=== PATIENT | female | born 1940 | race Caucasian/White ===

== ENCOUNTER 2016-05-21 08:57 | Outpatient (CLI) | payer MEDICARE | END 2016-05-21 08:58 | disposition home or self-care (01) | DX: M85.89 Other specified disorders of bone density and structure, multiple sites (principal) ==

== ENCOUNTER 2016-05-21 09:03 | Outpatient (CLI) | payer MEDICARE | END 2016-05-21 09:04 | disposition home or self-care (01) | DX: Z12.31 Encounter for screening mammogram for malignant neoplasm of breast (principal) ==

== ENCOUNTER 2016-11-28 09:11 | Outpatient (CLI) | payer MEDICARE ==
--- NOTE | 2016-11-29 15:57 | Ultrasound Report ---
EXAM: PELVIC ULTRASOUND EXAM DATE: 11/28/2016 10:29 AM. CLINICAL HISTORY: Vaginal bleeding. COMPARISON: None. TECHNIQUE: Realtime transabdominal pelvic scan performed to identify the uterus and adnexa and as an overview of other pelvic structures, followed by transvaginal scan to provide greater detail of the u terus and adnexa, with static image documentation. FINDINGS: Uterus: 8.0 x 3.5 x 5.2 cm, volume 76.1 cc. Anteverted position. Normal overall size. Heterogeneous e chotexture. Masses: None. Endometrium: 7 mm. Heterogeneous solid 1.1 x 1.2 x 1.3 cm abnormality in the lower uterine segment. Cervix: Unremarkable. Right Ovary: 2.6 x 1.2 x 1.4 cm, volume 1.7 cc. Normal echotexture and blood flow. Left Ovary: 1.6 x 1.2 x 1.4 cm, volume 1.4 cc. Normal echotexture and blood flow. Free Fluid: None. Other: None. IMPRESSION: Heterogeneous myometrium, concerning for adenomyosis, with abnormal endometrium 7 mm thi ck containing a mass or polyp in the lower uterine segment. [facility] Referring Provider Line: [phone] SITE ID: [id number]
== END 2016-11-28 09:12 | disposition home or self-care (01) ==
LOC: DI 09:11
PROVIDERS: ATTEND Internal Medicine
DX: R93.8 Abnormal findings on diagnostic imaging of other specified body structures (principal)
CPT/HCPCS: 76830; 76856

== ENCOUNTER 2017-01-04 12:18 | Outpatient (CLI) | payer MEDICARE | END 2017-01-04 12:19 | disposition home or self-care (01) | LOC: RT 12:18 | PROVIDERS: ATTEND Obstetrics & Gynecology | DX: Z01.810 Encounter for preprocedural cardiovascular examination (principal); N95.0 Postmenopausal bleeding | CPT/HCPCS: 93005 ==

== ENCOUNTER 2017-01-06 07:20 | Day surgery (SDC) | payer MEDICARE ==
--- NOTE | 2017-01-05 09:32 | HISTORY & PHYSICAL EXAMINATION ---
DATE OF ADMISSION: 01/06/2017 HISTORY OF PRESENT ILLNESS: The patient is a 76-year-old female who had one episode of postmenopausal bleeding in the early part of November. She had not been bleeding since menopause in 1994. She did not t cameron Prempro until 2002, at which time she switched to vaginal Premarin cream, which she continued unt il last year. Again, this was her first episode of bleeding. Hospital ultrasound demonstrated an endo metrial thickness of 7 mm and a 1-2 cm solid lesion in the endocervical canal, possibly representing a polyp. PAST MEDICAL HISTORY: The patient has had a laparoscopic cholecystectomy in 2001, in the distant past a tonsillectomy. She had 3 vaginal deliveries. ALLERGIES 1. LAMISIL. 2. SULFA DRUGS. CURRENT MEDICATIONS Include 1. Calcium. 2. As needed Lorazepam for anxiety. FAMILY HISTORY: Mother had colon cancer. REVIEW OF SYSTEMS GASTROINTESTINAL: Again, the patient had a cholecystectomy in 2001. Approximately also at that time s he was treated with Lamisil, which prompted a marked reaction in her liver function tests, which subs equently returned to normal. PHYSICAL EXAMINATION GENERAL APPEARANCE: The patient appears younger than her stated age. HEENT: Within normal limits. NECK: No thyromegaly. LUNGS: Clear. HEART: Regular rhythm with no murmur or gallop. ABDOMEN: Unremarkable with no masses or organomegaly. EXTREMITIES: Normal. NEUROLOGICAL: Grossly intact. GENITALIA: Introitus and vagina are atrophic. Cervix is grossly normal. No polyp was seen. The uterus is felt to be normal size and no palpable adnexal masses. ASSESSMENT: Postmenopausal bleeding with an endocervical mass, possibly representing a polyp. PLAN: Hysteroscopy D and C to evaluate the thickened endometrium in addition to the mass in the endoc ervix. The procedure has been explained to the patient. She understands and agrees to proceed. JOB #: [id number] EXT JOB #:[id number]
[2017-01-06] MEDS ORDERED: LACTATED RINGERS 1,000 ML IV ONE (07:34)
[2017-01-06] MEDS ORDERED: LIDOCAINE 1% 50 ML MDV SUBQ ONE (09:10)
[2017-01-06] MEDS ORDERED: MIDAZOLAM 2 MG/2 ML VIAL IVP ONE (09:24)
[2017-01-06] MEDS ORDERED: METOCLOPRAMIDE 10 MG/2 ML VIAL IVP ONE (09:24)
[2017-01-06] MEDS ORDERED: KETOROLAC 30 MG/ML VIAL IVP ONE (09:24)
[2017-01-06] MEDS ORDERED: ePHEDrine 50 MG/ML VIAL IVP ONE (09:24)
[2017-01-06] MEDS ORDERED: PROPOFOL 200 MG/20 ML VIAL IVP ONE (09:24)
[2017-01-06] MEDS ORDERED: fentaNYL 100 MCG/2 ML VIAL IVP ONE (09:24)
[2017-01-06] MEDS ORDERED: LIDOCAINE-MPF 2% 5 ML VIAL IM ONE (09:24)
[2017-01-06] MEDS ORDERED: ONDANSETRON 4 MG/2 ML VIAL IVP ONE (09:24)
--- NOTE | 2017-01-06 10:05 | OPERATIVE REPORT ---
DATE OF SURGERY: 01/06/2017 00:00:00 PREOPERATIVE DIAGNOSES 1. Postmenopausal bleeding. 2. Cervical mass. OPERATION: Hysteroscopy D and C. POSTOPERATIVE DIAGNOSES 1. Postmenopausal bleeding. 2. Endocervical polyp. SURGEON: Elías Diamond MD. ANESTHESIA: IV conscious sedation. PROCEDURE: In the lithotomy position under conscious sedation, the patient's perineum and vagina were prepped and draped in the usual sterile fashion. The cervix was grasped with a single-toothed tenacu lum. The uterus sounded to 7 cm. It was dilated with Hegar dilators. Hysteroscope was then inserted u nder direct vision. There was a scant amount of endometrial tissue in the endometrial cavity from the upper endocervical canal. There was an endocervical polyp on a long stalk. Very little tissue was as sociated with it. Sharp curettage was undertaken and the polyp removed with stone forceps. The scope was then replaced and the cavity appeared clean. Again, there was very little tissue submitted in a s aroldo specimen. The patient tolerated the procedure well. There were no complications. There was mini mal blood loss. JOB #: [id number] EXT JOB #:[id number]
[2017-01-06 10:23] VITALS: BP 100/50
== END 2017-01-06 07:21 | disposition home or self-care (01) ==
LOC: SDS 07:20
PROVIDERS: ATTEND Obstetrics & Gynecology
PROC: 0UDB7ZZ Extraction of Endometrium, Via Natural or Artificial Opening (ICD-10-PCS; 2017-01-06)
PROC: 0UJD8ZZ Inspection of Uterus and Cervix, Via Natural or Artificial Opening Endoscopic (ICD-10-PCS; 2017-01-06)
PROC: 0UBC7ZZ Excision of Cervix, Via Natural or Artificial Opening (ICD-10-PCS; principal; 2017-01-06 09:00)
DX: N84.1 Polyp of cervix uteri (principal)
CPT/HCPCS: 58558; 88305; J7120

== ENCOUNTER 2017-05-24 09:04 | Outpatient (CLI) | payer MEDICARE ==
--- NOTE | 2017-05-26 09:43 | Mammography Report ---
DATE OF SERVICE: 05/24/2017 DIGITAL SCREENING MAMMOGRAM: 05/24/2017 CLINICAL INDICATION: A 76-year-old, for screening. COMPARISON: 05/2016, 05/2015, 03/2014, 02/2012, 01/2011, 11/2009. TECHNIQUE: Routine CC and MLO projections were obtained of the breasts. Bilateral laterally exaggerated craniocaudal views. FINDINGS: The breasts demonstrate heterogeneously dense fibroglandular parenchyma bilaterally. Coarse and punctate, typically benign calcifications are present. No suspicious masses, clustered microcalcifications, or regions of architectural distortion are identified. IMPRESSION: BENIGN FINDINGS. RECOMMENDATION: ROUTINE ANNUAL SCREENING UNLESS OTHERWISE CLINICALLY INDICATED. BIRADS CATEGORY 2-BENIGN FINDINGS. STANDARD QUALIFYING STATEMENTS: 1. This examination was reviewed with the aid of Computer-Aided Detection (CAD). 2. A negative or benign imaging report should not delay biopsy if clinically suspicious findings are present. Consider surgical consultation if warranted. More than 5% of cancers are not identified by imaging. 3. Dense breasts may obscure an underlying neoplasm. TD: 05/26/2017 10:42
== END 2017-05-24 09:05 | disposition home or self-care (01) ==
LOC: DI 09:04
PROVIDERS: ATTEND Internal Medicine
DX: Z12.31 Encounter for screening mammogram for malignant neoplasm of breast (principal)
CPT/HCPCS: 77067

== ENCOUNTER 2018-04-04 08:04 | Outpatient (CLI) | payer MEDICARE | END 2018-04-04 08:05 | disposition critical access hospital (66) | LOC: EMS 08:04 | PROVIDERS: ATTEND Surgery | DX: M25.551 Pain in right hip (principal); W00.0XXA Fall on same level due to ice and snow, initial encounter; Y93.01 Activity, walking, marching and hiking ==

== ENCOUNTER 2018-04-04 08:12 | Observation (INO) | payer MEDICARE ==
--- NOTE | 2018-04-04 08:26 | ED Physician Documentation ---
PD HPI LOWER EXT INJURY - Stated complaint Stated Complaint: GLF - Chief complaint Chief Complaint: Ext Problem - History obtained from History obtained from: Patient - History of Present Illness PD HPI LOW EXT INJURY LOCATION: Right, Hip Type of injury: Fall Where injury occurred: Home Timing - onset: How many hours ago (30), Today Timing - duration: Minutes (30) Timing - details: Abrupt onset, Still present Associated symptoms: No: Weakness, Numbness, Swelling Review of Systems Constitutional: denies: Fever, Chills Nose: denies: Rhinorrhea / runny nose, Congestion Throat: denies: Sore throat Respiratory: denies: Cough GI: denies: Abdominal Pain, Nausea, Vomiting Skin: denies: Abrasion (s), Laceration (s) Musculoskeletal: denies: Neck pain, Back pain Neurologic: denies: Altered mental status, Headache, Head injury PD PAST MEDICAL HISTORY - Past Medical History Past Medical History: No Cardiovascular: None Respiratory: None Endocrine/Autoimmune: None - Past Surgical History Past Surgical History: Yes General: Cholecystectomy - Present Medications Home Medications: Ambulatory Orders Medication Instructions Recorded Confirmed Calcium Carbonate [Calcium] 600 mg PO DAILY 01/04/17 04/04/18 LORazepam [Lorazepam] 0.5 mg PO ONCE 01/06/17 04/04/18 - Allergies Allergies/Adverse Reactions: Allergies Allergy/AdvReac Type Severity Reaction Status Date / Time Sulfa (Sulfonamide Allergy Respiratory Verified 01/04/17 12:20 Antibiotics) terbinafine HCl * Allergy Unknown Verified 01/04/17 12:20 [From Lamisil] - Social History Does the pt smoke?: No Smoking Status: Never smoker Does the pt drink ETOH?: No Does the pt have substance abuse?: No - Immunizations Immunizations are current?: Yes PD ED PE NORMAL - Vitals Vital signs reviewed: Yes - General General: Alert and oriented X 3, No acute distress, Well developed/nourished - HEENT HEENT: Atraumatic - Neck Neck: Supple, no meningeal sign, No adenopathy - Cardiac Cardiac: RRR, No murmur - Respiratory Respiratory: Clear bilaterally, Other (no chetwall tenderness) - Abdomen Abdomen: Soft, Non tender - Back Back: No CVA TTP, No spinal TTP - Derm Derm: Normal color, Warm and dry - Extremities Extremities: No: Normal ROM s pain (left hip and leg are okay. Right knee and ankle without tenderness. Right hip with pain on any ROM and marked pain with even slight passive impaction or rotational movement. ) - Neuro Neuro: Alert and oriented X 3, No motor deficit, No sensory deficit, Normal speech Eye Opening: Spontaneous Motor: Obeys Commands Verbal: Oriented GCS Score: 15 Results - Vitals Vitals: Vital Signs - 24 hr 04/04/18 04/04/18 04/04/18 08:16 09:35 10:50 Temperature 36.9 C Heart Rate 90 72 68 Respiratory 16 18 20 Rate Blood Pressure 151/81 H 149/80 H 166/87 H O2 Saturation 100 100 97 04/04/18 11:09 Temperature Heart Rate 75 Respiratory Rate Blood Pressure O2 Saturation 100 Oxygen O2 Source Room air - Labs Labs: Laboratory Tests 04/04/18 04/04/18 10:10 10:10 WBC 12.7 H RBC 4.29 Hgb 12.6 Hct 36.9 L MCV 86.0 MCH 29.3 MCHC 34.1 RDW 13.1 Plt Count 183 MPV 9.1 Neut # (Auto) 10.6 H Lymph # (Auto) 1.3 L Bond # (Auto) 0.7 Eos # (Auto) 0.1 Baso # (Auto) 0.1 Absolute Nucleated RBC 0.00 Nucleated RBC % 0.0 Sodium 139 Potassium 4.0 Chloride 113 H Carbon Dioxide 19 L Anion Gap 7.0 BUN 22 H Creatinine 1.0 Estimated GFR (MDRD) 54 L Glucose 97 Calcium 8.8 Total Bilirubin 1.0 AST 22 ALT 21 Alkaline Phosphatase 68 Total Protein 6.3 L Albumin 4.0 Globulin 2.3 Albumin/Globulin Ratio 1.7 Lipase 31 - Rads (name of study) hip right Radiology: Prelim report reviewed, EMP read contemporaneously (inf/sup rami fractures) pelvic angio Radiology: Prelim report reviewed (Pelvic angios done at the direction and suggestion of the radiologist for evaluation of bleeding from the fractures. There was a small hematoma associated with the ramus fracture about 4 cm. No extravasation of dye to suggest ongoing bleeding. The CT scan did identify a sacral ala fracture as well. There is no displacement of the large pelvic ring.), Discussed with rads PD MEDICAL DECISION MAKING - ED course Complexity details: re-evaluated patient (She is feeling reasonably comfortable with lying on the bed with some pain medicine. However trying to sit up or swing her legs over and even slight impaction pressure as I push on her knee causes significant pain. She is not able to walk at this time due to the pain of it.), considered differential, d/w patient, d/w taxation consultant (I talked with the [place] transfer coordinating physician. I reviewed the findings with him. He did not feel there was necessity to transfer for orthopedic regarding the pelvic fractures. He said we would be able to treat the pain control with the patient in our hospital and get consultations for physical therapy and such.) Departure - Departure Disposition: ED Place in Observation Clinical Impression: Inability to walk, Acute pelvic pain Fall from slip, trip, or stumble Qualifiers: Encounter type: initial encounter Qualified Code(s): W01.0XXA - Fall on same level from slipping, tripping and stumbling without subsequent striking against object, initial encounter Closed fracture of single pubic ramus of pelvis Qualifiers: Encounter type: initial encounter Laterality: right Qualified Code(s): S32.591A - Other specified fracture of right pubis, initial encounter for closed fracture Condition: Stable Record reviewed to determine appropriate education?: Yes
[2018-04-04] MEDS ORDERED: MORPHINE 2 MG/ML CARPUJECT IVP STA ×2 (09:04→12:53)
[2018-04-04] MEDS ORDERED: SODIUM CHLORIDE 0.9% 1,000 ML IV ONE (09:05)
[2018-04-04] MEDS ORDERED: MORPHINE 2 MG/ML CARPUJECT ONE (09:07)
--- NOTE | 2018-04-04 09:46 | XRAY Report ---
Reason: fell on slippery guerrero/ice onto right hip Procedure Date: 04/04/2018 Accession Number: [id number] / [id number] Procedure: XR - Hip w/Pelvis 2-3V RT CPT Code: FULL RESULT: EXAM: RIGHT HIP AND PELVIS RADIOGRAPHY EXAM DATE: 04/04/2018 09:29 AM. HISTORY: Fell on slippery guerrero/ice onto right hip. COMPARISONS: None. TECHNIQUE: 1 view of the pelvis and 1 view of the hip. FINDINGS: Bones: There are fractures of at least the superior and inferior pubic rami on the right. Joints: There is no hip joint dislocation. No definite fracture of the sacroiliac joint is identified. There is no widening of the pubic symphysis. Soft Tissues: Within normal limits. IMPRESSION: Pelvic fracture of the superior and inferior right pubic rami. Recommend CTA of the pelvis with delayed phase images to evaluate for occult sacral fracture as well as the possibility of active bleeding. [facility] CRITICAL RESULT: The findings were discussed with Dr. Faith on 04/04/2018 at 9:40 AM.
[2018-04-04] MEDS ORDERED: IOPAMIDOL-300 100 ML VIAL ONE (09:50)
[2018-04-04 10:16] LABS: BASOPHILS # (AUTO) 0.1 10^3/uL (0.0-0.1); BASOPHILS % (AUTO) 0.5 %; EOSINOPHILS # (AUTO) 0.1 10^3/uL (0.0-0.7); EOSINOPHILS % (AUTO) 0.5 %; HGB - HEMOGLOBIN 12.6 g/dL (12.0-16.0); LYMPHOCYTES # (AUTO) 1.3 10^3/uL (1.5-3.5); LYMPHOCYTES % (AUTO) 10.4 %; MEAN CORPUSCULAR HEMOGLOBIN 29.3 pg (27.0-31.0); MEAN CORPUSCULAR HGB CONC 34.1 g/dL (32.0-36.0); MEAN PLATELET VOLUME 9.1 fL (7.9-10.8); MONOCYTES # (AUTO) 0.7 10^3/uL (0.0-1.0); MONOCYTES % (AUTO) 5.2 %; NEUTROPHILS # (AUTO) 10.6 10^3/uL (1.5-6.6); NEUTROPHILS % (AUTO) 83.4 %; PLT - PLATELET COUNT 183 10^3/uL (130-450); RED BLOOD COUNT 4.29 10^6/uL (4.20-5.40); RED CELL DISTRIBUTION WIDTH 13.1 % (12.0-15.0); WHITE BLOOD COUNT 12.7 x10^3/uL (4.8-10.8)
[2018-04-04] MEDS ORDERED: DEXAMETHASONE 10 MG/ML VIAL ONE (10:24)
[2018-04-04 10:32] LABS: ALBUMIN/GLOBULIN RATIO 1.7 (1.0-2.2); CALCIUM 8.8 mg/dL (8.5-10.3); TOTAL PROTEIN 6.3 g/dL (6.7-8.2)
[2018-04-04] MEDS ORDERED: IOPAMIDOL-300 100 ML VIAL IVP ONE (10:58)
--- NOTE | 2018-04-04 11:28 | CT Report ---
Reason: rami fracture on xray Procedure Date: 04/04/2018 Accession Number: [id number] / [id number] Procedure: CT - Pelvis Angio CPT Code: FULL RESULT: EXAM: CT ANGIOGRAM PELVIS WITH CONTRAST EXAM DATE: 04/04/2018 10:51 AM. CLINICAL HISTORY: Pubic ramus fracture on x-ray. COMPARISONS: HIP W/PELVIS 2-3V RT 04/04/2018 8:40 AM. TECHNIQUE: Routine helical CT angiogram imaging was performed through the abdomen and pelvis in the arterial phase. IV contrast: ISOVUE 300 100mL. Enteric contrast: No. Reconstructions: Coronal, sagittal, and 3D MIP reconstructions. In accordance with CT protocol optimization, one or more of the following dose reduction techniques were utilized for this exam: automated exposure control, adjustment of mA and/or KV based on patient size, or use of iterative reconstructive technique. FINDINGS: Vasculature: The common, internal and external iliac arteries are visualized. There is moderate atherosclerotic disease. There is no contrast extravasation. There is normal flow of contrast through the vessels. Lung Bases: Normal. Abdominal Solid Organs: Normal. The liver, spleen, pancreas, adrenal glands, gallbladder and kidneys are normal in size and demonstrate no masses or abnormal enhancement. Peritoneal Cavity: Normal. No free fluid, free air, or acute inflammatory process. Pelvic Organs: Normal. The bladder and visualized pelvic organs are within normal limits. Bones: There is a comminuted fracture of the right body of pubis and the midshaft of the right inferior pubic ramus. There is a minimally displaced fracture of the right sacral ala. There are small associated hematomas. There is a hematoma adjacent to the right superior pubic ramus measuring approximately 4.1 x 2.4 x 1.5 cm tracking into the anterior pelvic wall. The right obturator internus muscle, appears thickened relative to the left, and deviates the uterus and bladder towards the left. The muscle measures up to 6.2 x 2.4 x 3.9 cm, suggestive of an intramuscular hematoma associated with the inferior pubic ramus fracture. Grade 1 anterolisthesis at L5-S1. There is severe degenerative change at the L5-S1 level. There is mild bilateral hip osteoarthritis. Other: None. IMPRESSION: 1. No contrast extravasation to suggest active hemorrhage. 2. No vascular occlusion. Moderate atherosclerosis. 3. Fractures of the right superior and inferior pubic rami, and the right sacral ala. There are hematomas in the right anterior pelvic wall associated with the superior pubic ramus fracture, and in the right obturator internus adjacent to the inferior pubic ramus fracture. [facility]
[2018-04-04] MEDS ORDERED: ACETAMINOPHEN 325 MG TABLET PO STA (12:53)
[2018-04-04] MEDS ORDERED: KETOROLAC 60 MG/2 ML VIAL IVP STA (12:53)
--- NOTE | 2018-04-04 14:11 | HISTORY & PHYSICAL EXAMINATION ---
Chief Complaint - Chief Complaint Chief Complaint: right hip pain History of Present Illness - History of Present Illness HPI Comment/Other: Ms. George is a 77-yrs-old health female, who present ER complain of right hip pain after mechanical GLF slipping on the ice and landing on her right hip. After fall, she is not able to walk due to the pain of it. X-ray and CTA of pelvis reveals there was a small hematoma associated with the ramus fracture, there is no extravasation of dye to suggest ongoing bleeding.The CTA scan find a sacral ala fracture as well. There is no displacement of the large pelvic ring. ER provider talked with the [place] transfer coordinating physician. He did not think there was necessity to transfer for orthopedic regarding the pelvic fractures. He suggest we can treat pt with the pain control and physical therapy in our patient. ER also called our orthopedics surgeon for consulting. History - Past Medical History Cardiovascular: reports: None Respiratory: reports: None Endocrine/Autoimmune: reports: None MRSA Hx?: No - Past Surgical History General: reports: Cholecystectomy - Family & Social History Family History: Mother: , Alzheimer's Disease, Father: , CAD Family History Comment/Other: pt is living with at [facility] Social History Notes: pt denies cigarette smoker, alcohol and illicit drug abuse - POLST POLST Status: Full Code Meds/Allgy - Home Medications Home Medications: Ambulatory Orders Medication Instructions Recorded Confirmed Calcium Carbonate [Calcium] 600 mg PO DAILY 01/04/17 04/04/18 LORazepam [Lorazepam] 0.5 mg PO ONCE 01/06/17 04/04/18 - Allergies Allergies/Adverse Reactions: Allergies Allergy/AdvReac Type Severity Reaction Status Date / Time Sulfa (Sulfonamide Allergy Respiratory Verified 01/04/17 12:20 Antibiotics) terbinafine HCl * Allergy Unknown Verified 01/04/17 12:20 [From Lamisil] Review of Systems - Constitutional Constitutional: denies: Fatigue, Fever, Chills, Malaise, Weakness, Poor appetite, Diaphoresis, Night sweats - Eyes Eyes: denies: Pain, Irritation, Amaurosis, Blurred vision, Spots in vision, Field loss, Vision loss, Dipolpia - Ears, Nose & Throat Ears, Nose & Throat: denies: Ear pain, Hearing loss, Hearing aids, Vertigo, Nasal pain, Nasal obstruction, Nasal congestion, Sore throat, Mouth lesions, Bleeding gums - Cardiovascular Cariovascular: denies: Irregular heart rate, Palpitations, Chest pain, Edema, Lightheadedness, Syncope, Exertional dyspnea, Decr. exercise tolerance - Respiratory Respiratory: denies: Cough, Sputum production, Wheezing, Snoring, Hemoptysis, Orthopnea, SOB at rest, SOB with exertion - Gastrointestinal Gastrointestinal: denies: Abdominal pain, Abdominal distention, Constipation, Diarrhea, Change in bowel habits, Rectal bleeding, Black stools, Bloody stools, Nausea, Vomiting, Bile emesis, Alex blood emesis - Genitourinary Genitourinary: denies: Dysuria, Frequency, Urgency, Hematuria, Incontinence, Flank pain, Nocturia, Urethral discharge - Musculoskeletal Musculoskeletal: reports: Back pain, Limited range of motion, Joint pain. denies: Muscle pain, Muscle aches, Stiffness, Muscle weakness, Gout - Integumentary Integumentary: denies: Rash, Pruritis, Lesions, Dryness, Lumps, Acne, Pigment changes - Neurological Neurological: denies: General weakness, Focal weakness, Headache, Dizziness, Numbness, Memory problems, Pre-existing deficit, Abnormal gait, Seizures, Incoordination, Slurred speech - Psychiatric Psychiatric: denies: Depression, Anxiety, Suicidal, Delusions, Hallucinations, Homicidal - Endocrine Endocrine: denies: Polyuria, Polydypsia, Polyphagia, Intolerance to cold - Hematologic/Lymphatic Hematologic/Lymphatic: denies: Anemia, Bruising, Petechiae, Blood clots, Lymphadenopathy, Bleeding tendencies Exam - Vital Signs Reviewed Vital Signs: Yes Vital Signs: Vital Signs x48h Temp Pulse Resp BP Pulse Ox 04/04/18 13:47 73 12 128/65 100 04/04/18 11:09 75 100 04/04/18 10:50 68 20 166/87 H 97 04/04/18 09:35 72 18 149/80 H 100 04/04/18 08:16 36.9 C 90 16 151/81 H 100 - Physical Exam General Appearance: positive: No acute distress, Alert. negative: Lethargic Eyes Bilateral: positive: Normal inspection, PERRL, No lid inflammation, Conjunctivae nml ENT: positive: ENT inspection nml, Pharynx nml, No signs of dehydration. negative: Purulent nasal drainage, Pharyngeal erythema, Oral lesions Neck: positive: Nml inspection, Thyroid nml, No JVD, Trachea midline. negative: Thyromegaly, Lymphadenopathy (R), Lymphadenopathy (L), Stiff neck, Swelling/bruising, Tracheal deviation Respiratory: positive: Chest non-tender, No respiratory distress, Breath sounds nml. negative: Wheezes, Rales, Rhonchi Cardiovascular: positive: Regular rate & rhythm, No murmur, No gallop. negative: Irregularly irregular, Extrasystoles, Tachycardia, Bradycardia, JVD present, Systolic murmur, Diastolic murmur Peripheral Pulses: positive: 2+ Abdomen: positive: Non-tender, No organomegaly, Nml bowel sounds, No distention. negative: Tenderness, Guarding, Rebound Back: positive: Nml inspection. negative: CVA tenderness (R), CVA tenderness (L) Skin: positive: Color nml, No rash, Warm, Dry. negative: Cyanosis, Diaphoresis, Pallor Extremities: positive: Non-tender, Nml appearance. negative: Full ROM, Calf tenderness, Joint swelling, Elida's sign/cords Neurologic/Psychiatric: positive: Oriented x3, Sensation nml, Mood/affect nml. negative: Weakness, Sensory loss, Facial droop, Slurred/abnml speech, Depressed mood/affect Sepsis Event Note (H) - Evaluation Current Stage of Sepsis: Ruled out Conclusion/Plan - Problem List (1) Closed fracture of single pubic ramus of pelvis Conclusion/Plan: Xray and CTA reveals pelvis fracture, small hematoma without acute bleeding consult with orthopedics, followup Pain control PT/OT Qualifiers: Encounter type: initial encounter Laterality: right Qualified Code(s): S32.591A - Other specified fracture of right pubis, initial encounter for closed fracture (2) Fall from slip, trip, or stumble Conclusion/Plan: educate pt, fall precaution Qualifiers: Encounter type: initial encounter Qualified Code(s): W01.0XXA - Fall on same level from slipping, tripping and stumbling without subsequent striking against object, initial encounter (3) Dehydration Conclusion/Plan: pt has slight elevate BUN, GFR 54. IVF of NS lab and vital monitor (4) DVT prophylaxis Conclusion/Plan: SCD and Lovenox, it is high risk for DVT (5) Full code status Conclusion/Plan: pt request full code - Lab Results Fish Bones: 04/04/18 10:10 04/04/18 10:10 Core Measures - Anticipated LOS I expect patient to be DC'd or transferred within 96 hours.: Yes - DVT/VTE - Prophylaxis VTE/DVT Device ordered at admit?: Yes VTE/DVT Prophylaxis med ordered at admit?: Yes
[2018-04-04] MEDS ORDERED: MORPHINE 2 MG/ML CARPUJECT IVP PRN (14:14)
[2018-04-04] MEDS ORDERED: ONDANSETRON 4 MG/2 ML VIAL IVP PRN (14:14)
[2018-04-04] MEDS ORDERED: ACETAMINOPHEN 325 MG TABLET PO PRN (14:14)
[2018-04-04] MEDS ORDERED: SODIUM CHLORIDE FLUSH 0.9% 10 ML SYRINGE IVP PRN (14:14)
[2018-04-04] MEDS ORDERED: ZOLPIDEM 5 MG TABLET PO PRN (14:14)
--- NOTE | 2018-04-04 14:28 | HISTORY & PHYSICAL EXAMINATION ---
Chief Complaint - Chief Complaint Chief Complaint: right hip pain History - Past Medical History Cardiovascular: reports: None Respiratory: reports: None Endocrine/Autoimmune: reports: None MRSA Hx?: No - Past Surgical History General: reports: Cholecystectomy Meds/Allgy - Home Medications Home Medications: Ambulatory Orders Medication Instructions Recorded Confirmed Calcium Carbonate [Calcium] 600 mg PO DAILY 01/04/17 04/04/18 LORazepam [Lorazepam] 0.5 mg PO ONCE 01/06/17 04/04/18 - Allergies Allergies/Adverse Reactions: Allergies Allergy/AdvReac Type Severity Reaction Status Date / Time Sulfa (Sulfonamide Allergy Respiratory Verified 01/04/17 12:20 Antibiotics) terbinafine HCl * Allergy Unknown Verified 01/04/17 12:20 [From Lamisil] Exam - Vital Signs Vital Signs: Vital Signs x48h Temp Pulse Resp BP Pulse Ox 04/04/18 13:47 73 12 128/65 100 04/04/18 11:09 75 100 04/04/18 10:50 68 20 166/87 H 97 04/04/18 09:35 72 18 149/80 H 100 04/04/18 08:16 36.9 C 90 16 151/81 H 100 Conclusion/Plan - Lab Results Fish Bones: 04/04/18 10:10 04/04/18 10:10
[2018-04-04] MEDS ORDERED: SODIUM CHLORIDE 0.9% 1,000 ML IV SCH (15:00)
[2018-04-04] MEDS: SODIUM CHLORIDE 0.9% 1,000 ML IV SCH (16:08)
[2018-04-04] MEDS: SODIUM CHLORIDE FLUSH 0.9% 10 ML SYRINGE IVP SCH (16:10)
--- NOTE | 2018-04-04 16:41 | PROVIDER PROGRESS NOTE ---
Subjective - Prog Note Date Prog Note Date: 04/04/18 Prog Note Time: 16:39 - Subjective Pt reports feeling: Improved (Ortho: An Ortho consult has been dictated. This patient has a stable fracture of the Pelvis: right public rami, and right sacral ala. Surgery is not indicated. The patient is admitted for pain management and Physical Therapy. She is expected to be hospitalized less than 96 hrs. Orthopedic clinic f/u is to be within 2-3 wks of discharge.) Objective - Vital Signs/Intake & Output Vital Signs: Vital Signs x48h Temp Pulse Pulse Resp BP BP Pulse Ox 04/04/18 15:42 37.2 C 86 16 132/72 H 98 04/04/18 14:58 36.9 C 84 16 141/61 H 100 04/04/18 13:47 73 12 128/65 100 04/04/18 11:09 75 100 04/04/18 10:50 68 20 166/87 H 97 04/04/18 09:35 72 18 149/80 H 100 Intake & Output: Intake & Output 04/01/18 04/02/18 04/03/18 04/04/18 23:59 23:59 23:59 23:59 Intake Total 1000 Balance 1000 - Lab Results Fish Bones: 04/04/18 10:10 04/04/18 10:10 Other Labs: Lab Results x24hrs 04/04/18 04/04/18 Range/Units 10:10 10:10 WBC 12.7 H (4.8-10.8) x10^3/uL RBC 4.29 (4.20-5.40) 10^6/uL Hgb 12.6 (12.0-16.0) g/dL Hct 36.9 L (37.0-47.0) % MCV 86.0 (81.0-99.0) fL MCH 29.3 (27.0-31.0) pg MCHC 34.1 (32.0-36.0) g/dL RDW 13.1 (12.0-15.0) % Plt Count 183 (130-450) 10^3/uL MPV 9.1 (7.9-10.8) fL Neut # (Auto) 10.6 H (1.5-6.6) 10^3/uL Lymph # (Auto) 1.3 L (1.5-3.5) 10^3/uL [place] # (Auto) 0.7 (0.0-1.0) 10^3/uL Eos # (Auto) 0.1 (0.0-0.7) 10^3/uL Baso # (Auto) 0.1 (0.0-0.1) 10^3/uL Absolute Nucleated RBC 0.00 x10^3/uL Nucleated RBC % 0.0 /100WBC Sodium 139 (135-145) mmol/L Potassium 4.0 (3.5-5.0) mmol/L Chloride 113 H (101-111) mmol/L Carbon Dioxide 19 L (21-32) mmol/L Anion Gap 7.0 (6-13) BUN 22 H (6-20) mg/dL Creatinine 1.0 (0.4-1.0) mg/dL Estimated GFR (MDRD) 54 L (>89) Glucose 97 (70-100) mg/dL Calcium 8.8 (8.5-10.3) mg/dL Total Bilirubin 1.0 (0.2-1.0) mg/dL AST 22 (10-42) IU/L ALT 21 (10-60) IU/L Alkaline Phosphatase 68 (42-121) IU/L Total Protein 6.3 L (6.7-8.2) g/dL Albumin 4.0 (3.2-5.5) g/dL Globulin 2.3 (2.1-4.2) g/dL Albumin/Globulin Ratio 1.7 (1.0-2.2) Lipase 31 (22-51) U/L
--- NOTE | 2018-04-04 18:42 | CONSULTATION NOTE ---
DATE OF SERVICE: 04/04/2018 Physician: Kassie Vega MD ORTHOPEDIC CONSULTATION REQUESTING PROVIDER: Flor MD REASON FOR CONSULTATION: Right-sided pelvis fracture. HISTORY OF PRESENT ILLNESS: The patient is a 77-year-old female who suffered a ground level fall in her home directly onto her right hip while walking on the street outside her home. She was unable to get up and resume ambulation and had significant pelvis pain both anterior and posterior on the righ t side and was brought to the emergency room. PRIOR MEDICAL HISTORY: Reviewed as obtained by the hospitalist and her prior medications and prior r eview of systems. PHYSICAL EXAMINATION: Shows her to be in minimal distress, lying comfortable on a gurney. She is co nversant and a good historian. Her localization of pain is to the anterior pubic area into the poste rior SI joint area. She does not have good enough muscle control to raise her right lower extremity in the air, but she has motor control of her knee and foot and ankle and no swelling and normal neuro vascular exam. The hip area has normal skin appearance without any bruising evident at this time. A book maneuver on the sacrum and pelvis does not cause much pain, but palpation does posteriorly and anteriorly on the right. Review of x-rays and CT scan reveal pubic rami fractures that are displaced on the right side and on CT and seen only on CT is a small buckle fracture in the sacral ala on the right. The patient has al so had a CT angiogram, which is noncontributory. IMPRESSION: The patient has stable pelvis fractures in an elderly lady with a low energy injury. The plan is for her to be admitted to the hospital. She will have mobilization with physical therapy utilizing a walker and pain management and deep venous thrombosis prophylaxis. She will be followed in the Orthopedic Clinic within 2 weeks of discharge from the hospital and, if needed, [facility]. TD: 04/04/2018 14:57
[2018-04-04] MEDS: FAMOTIDINE 20 MG TABLET PO SCH (20:42)
[2018-04-05] MEDS: SODIUM CHLORIDE 0.9% 1,000 ML IV SCH (02:56)
[2018-04-05] MEDS: SODIUM CHLORIDE FLUSH 0.9% 10 ML SYRINGE IVP SCH ×3 (02:58→15:55)
[2018-04-05 06:32] LABS: BASOPHILS # (AUTO) 0.1 10^3/uL (0.0-0.1); BASOPHILS % (AUTO) 0.7 %; EOSINOPHILS # (AUTO) 0.2 10^3/uL (0.0-0.7); EOSINOPHILS % (AUTO) 1.7 %; HGB - HEMOGLOBIN 11.1 g/dL (12.0-16.0); LYMPHOCYTES # (AUTO) 1.3 10^3/uL (1.5-3.5); MEAN CORPUSCULAR HEMOGLOBIN 29.6 pg (27.0-31.0); MEAN CORPUSCULAR HGB CONC 33.4 g/dL (32.0-36.0); MEAN CORPUSCULAR VOLUME 88.6 fL (81.0-99.0); MEAN PLATELET VOLUME 9.3 fL (7.9-10.8); MONOCYTES # (AUTO) 0.9 10^3/uL (0.0-1.0); MONOCYTES % (AUTO) 9.8 %; NEUTROPHILS # (AUTO) 6.6 10^3/uL (1.5-6.6); NEUTROPHILS % (AUTO) 73.8 %; PLT - PLATELET COUNT 142 10^3/uL (130-450); RED BLOOD COUNT 3.76 10^6/uL (4.20-5.40); RED CELL DISTRIBUTION WIDTH 13.2 % (12.0-15.0)
[2018-04-05 06:47] LABS: ALBUMIN 3.2 g/dL (3.2-5.5); ALBUMIN/GLOBULIN RATIO 1.5 (1.0-2.2); BILIRUBIN,TOTAL 1.2 mg/dL (0.2-1.0); CALCIUM 8.1 mg/dL (8.5-10.3); TOTAL PROTEIN 5.4 g/dL (6.7-8.2)
[2018-04-05] MEDS: FAMOTIDINE 20 MG TABLET PO SCH (08:50)
[2018-04-05] MEDS ORDERED: POLYETHYLENE GLYCOL 3350 17 GM PACKET PO SCH (09:00)
[2018-04-05] MEDS ORDERED: ENOXAPARIN 40 MG/0.4 ML SYRINGE SUBQ SCH (09:00)
[2018-04-05] MEDS ORDERED: KETOROLAC 10 MG TABLET PO PRN (10:15)
[2018-04-05] MEDS ORDERED: KETOROLAC 30 MG/ML VIAL IVP PRN (10:37)
[2018-04-05] MEDS ORDERED: KETOROLAC 30 MG/ML VIAL ONE (10:38)
[2018-04-05] MEDS: oxyCODONE 5 MG TABLET PO PRN ×2 (10:47→16:08)
[2018-04-05] MEDS ORDERED: CALCIUM CARBONATE CHEW 500 MG TABLET PO SCH (11:30)
[2018-04-05] MEDS ORDERED: CHOLECALCIFEROL 1,000 UNIT TABLET PO SCH (11:30)
--- NOTE | 2018-04-05 16:02 | Discharge Plan ---
Discharge Plan Disposition: 01 Home, Self Care Condition: Good Prescriptions: Ketorolac [Toradol] 10 mg PO Q6HR PRN #20 tablet PRN Reason: Pain Oxycodone HCl/Acetaminophen [Percocet 5-325 mg Tablet] 1 each PO Q4H #25 tablet Polyethylene Glycol 3350 [Miralax] 17 gm PO DAILY #30 packet Diet: Regular Activity Restrictions: Activity as Tolerated Shower Restrictions: No Driving Restrictions: Yes Assistance Devices: Walker Weight Bearing: Full Weight Additional Instructions or Follow Up instructions: You were admitted for a fall resulting in a pelvic fracture. Orthopedic surgery was consulted and recommended no surgical repair and you should follow up in the Orthopedic clinic within 2-3 weeks. Please use the pain medication as prescribed and especially before activity. The toradol (ketorolac) is a type of non-steroidal anti-inflammatory mediation much like ibuprofen or naproxen, so do not take either of those while you are taking the toradol. The Percocet (oxycodone/acetaminophen) is a narcotic, which you were given at the hospital, so please be careful for over-drowsiness and/or constipation. You can take over the counter Mirralax or drink prune juice at least daily. Please see your primary care provider within one week. No Smoking: If you smoke, Please STOP! Call for help. Follow-up with: Kathy Finch MD [Primary Care Provider] -
--- NOTE | 2018-04-05 16:43 | DISCHARGE SUMMARY ---
"Discharge Summary Admit Date: 04/04/18 Discharge Date: 04/05/18 Discharging Provider: JOANNA Thomas Primary Care Provider: Kathy Finch Code Status: Attempt Resuscitation Condition at Discharge: Good Discharge Disposition: 01 Home, Self Care - DIAGNOSES Admission Diagnoses: Fracture of unsp parts of lumbosacral spine and pelvis, init (S32.9XXA) Unspecified fall, initial encounter (W19.XXXA) Discharge Diagnoses with Status of Each Condition: Closed fracture of right pelvis (S32.9XXA) new on this admit, PT cleared for discharge home using a wheeled walker. Fall (W19.XXXA) ongoing risk, resolved. Osteoporosis (M81.0) chronic, continue on D3 supplement. Acute pain (R52) related to right pelvic fracture, controlled with new pres criptions. Constipation (K59.00) intermittent, stable. - HPI History of Present Illness: Zee George is a 77-year-old female with a past medical history of osteoporosis and no other health history. She presented to the ED with complaints of right hip pain after a mechanical, ground level fall by slipping on ice and landing on her right hip. After the fall, she has not been able to walk due to this pain. A X-ray and CTA of pelvis reveals there was a small hematoma associated with the ramus fracture, there is no extravasation of dye to suggest ongoing bleeding. The CTA scan also noted a sacral ala fracture with no displacement of the large pelvic ring. The ER provider talked with the [facility] transfer coordinating physician who did not recommend a transfer for orthopedic care regarding the pelvic fracture and suggested to treat the patient's pain and a physical therapy evaluation. Orthopedic surgery was consulted and the patient will be placed in observation for pain management and a PT evaluation. - CONSULTS | PROCEDURES Consultations: Orthopedic surgery-Dr. Vega - HOSPITAL COURSE Hospital Course: The patient was observed overnight and physical therapy cleared her for discharge home after 2 therapy sessions including a stair evaluation. The patient was medically stable and her was sent ahead of discharge to belt picker medications for home use. She was transported via private car, and wheeled walker. - ALLERGIES Allergies/Adverse Reactions: Allergies Allergy/AdvReac Type Severity Reaction Status Date / Time Sulfa (Sulfonamide Allergy Respiratory Verified 01/04/17 12:20 Antibiotics) terbinafine HCl * Allergy Unknown Verified 01/04/17 12:20 [From Lamisil] - MEDICATIONS Home Medications: Ambulatory Orders Medication Instructions Recorded Confirmed Calcium Carbonate/Vitamin D3 1 tab PO DAILY 04/05/18 04/05/18 [Calcium 500-Vit D3 600 Caplet] Ketorolac [Toradol] 10 mg PO Q6HR PRN #20 tablet 04/05/18 Oxycodone HCl/Acetaminophen 1 each PO Q4H #25 tablet 04/05/18 [Percocet 5-325 mg Tablet] Polyethylene Glycol 3350 [Miralax] 17 gm PO DAILY #30 packet 04/05/18 - PHYSICAL EXAM AT DISCHARGE General Appearance: positive: No acute distress, Alert Eyes Bilateral: positive: Normal inspection, PERRL ENT: positive: ENT inspection nml, Pharynx nml, No signs of dehydration Neck: positive: Thyroid nml, No JVD, Trachea midline Respiratory: positive: Chest non-tender, No respiratory distress, Breath sounds nml Cardiovascular: positive: Regular rate & rhythm, No murmur, No gallop Peripheral Pulses: positive: 2+ Abdomen: positive: Non-tender, Nml bowel sounds Back: positive: Nml inspection Skin: positive: No rash, Warm, Dry Extremities: positive: Non-tender, Full ROM, Nml appearance, No pedal edema Neurologic/Psychiatric: positive: Oriented x3, CN's nml (2-12), Motor nml, Sensation nml, Mood/affect nml Reflexes: Bicep (R): 3+, Bicep (L): 3+ - LABS Result Diagrams: 04/05/18 05:55 04/05/18 05:55 - DIAGNOSTIC IMAGING Diagnostic Imaging Results: Final report reviewed Diagnostic Imaging Results Comments: EXAM: RIGHT HIP AND PELVIS RADIOGRAPHY EXAM DATE: 04/04/2018 09:29 AM. IMPRESSION: Pelvic fracture of the superior and inferior right pubic rami. Recommend CTA of the pelvis with delayed phase images to evaluate for occult sacral fracture as well as the possibility of active bleeding. EXAM: CT ANGIOGRAM PELVIS WITH CONTRAST EXAM DATE: 04/04/2018 10:51 AM. IMPRESSION: 1. No contrast extravasation to suggest active hemorrhage. 2. No vascular occlusion. Moderate atherosclerosis. 3. Fractures of the right superior and inferior pubic rami, and the right sacral ala. There are hematomas in the right anterior pelvic wall associated with the superior pubic ramus fracture, and in the right obturator internus adjacent to the inferior pubic ramus fracture. - SEPSIS Current Stage of Sepsis: Ruled out - FOLLOW UP Follow Up: Disposition: 01 Home, Self Care Condition: Good Prescriptions: Ketorolac [Toradol] 10 mg PO Q6HR PRN #20 tablet, PRN Reason: Pain Oxycodone HCl/Acetaminophen [Percocet 5-325 mg Tablet] 1 each PO Q4H #25 tablet Polyethylene Glycol 3350 [Miralax] 17 gm PO DAILY #30 packet Activity Restrictions: Activity as Tolerated Shower Restrictions: No Driving Restrictions: Yes Assistance Devices: Walker Weight Bearing: Full Weight Additional Instructions or Follow Up instructions: You were admitted for a fall resulting in a pelvic fracture. Orthopedic surgery was consulted and recommended no surgical repair and you should follow up in the Orthopedic clinic within 2-3 weeks. Please use the pain medication as prescribed and especially before activity. The toradol (ketorolac) is a type of non-steroidal anti-inflammatory mediation much like ibuprofen or naproxen, so do not take either of those while you are taking the toradol. The Percocet (oxycodone/acetaminophen) is a narcotic, which you were given at the hospital, so please be careful for over-drowsiness and/or constipation. You can take over the counter Mirralax or drink prune juice at least daily. Please see your primary care provider within one week. - TIME SPENT Time Spent in Discharge (Minutes): 55"
[2018-04-05 18:36] VITALS: BP 163/67
== END 2018-04-05 18:12 | disposition home or self-care (01) ==
LOC: EDUNIT# → ED 08:12 → MS2 14:28
PROVIDERS: ADMIT Nurse Practitioner Gerontology; ATTEND Nurse Practitioner
DX: S32.511A Fracture of superior rim of right pubis, initial encounter for closed fracture (principal); S32.591A Other specified fracture of right pubis, initial encounter for closed fracture; S32.19XA Other fracture of sacrum, initial encounter for closed fracture; E86.0 Dehydration; M81.0 Age-related osteoporosis without current pathological fracture; W00.0XXA Fall on same level due to ice and snow, initial encounter
CPT/HCPCS: 36415; 72191; 73502; 80053; 83690; 83735; 85025; 96374; 96376; 97116; 97161; 99284; A9270; G0378; G8978; G8979; G8980; J1650; Q9967; 96361; 96372; 96375

== ENCOUNTER 2018-05-26 13:09 | Outpatient (CLI) | payer MEDICARE ==
--- NOTE | 2018-05-30 09:55 | Mammography Report ---
Reason: SCREENING MAMMO Procedure Date: 05/26/2018 Accession Number: [id number] / [id number] Procedure: [facility] - Screening Mammo w/Kane CPT Code: FULL RESULT: EXAM: Screening Mammo w/Kane DATE: 05/26/2018 3:00 PM CLINICAL HISTORY: Routine screening TECHNIQUE: Bilateral CC and MLO views were obtained. COMPARISON: 05/24/2017, 05/21/2016, 05/20/2015, 04/03/2014. FINDINGS: The breast tissue is heterogeneously dense. There has been no significant interval change. No suspicious masses, clustered microcalcifications, or regions of architectural distortion are identified. Extensive vascular calcification as before. IMPRESSION: Benign findings RECOMMENDATION: Routine annual screening unless otherwise clinically indicated. BIRADS CATEGORY 2: Benign findings STANDARD QUALIFYING STATEMENTS: 1. This examination was not reviewed with the aid of Computer-Aided Detection (CAD). 2. A negative or benign imaging report should not preclude biopsy if clinically suspicious findings are present. 3. Dense breasts may obscure an underlying neoplasm. 4. This examination was reviewed with the aid of 3D breast imaging (tomosynthesis).
== END 2018-05-26 13:10 | disposition home or self-care (01) ==
LOC: DI 13:09
PROVIDERS: ATTEND Internal Medicine
DX: Z12.31 Encounter for screening mammogram for malignant neoplasm of breast (principal)
CPT/HCPCS: 77063; 77067

== ENCOUNTER 2019-05-12 08:09 | Outpatient (CLI) | payer MEDICARE ==
--- NOTE | 2019-05-12 11:43 | Mammography Report ---
Reason: MASTODONA Procedure Date: 05/12/2019 Accession Number: [id number] / [id number] Procedure: [facility] - Diagnostic Dig Bilat CPT Code: Final Report FULL RESULT: EXAM: Diagnostic Dig Bilat DATE: 05/12/2019 8:59 AM CLINICAL HISTORY: Diagnostic examination. Mastodynia. TECHNIQUE: (B) - Bilateral CC, laterally exaggerated CC, MLO views were obtained. COMPARISON: 05/26/2018 through 05/20/2015. PARENCHYMAL PATTERN: (VD) - The breast(s) demonstrate(s) extremely dense parenchyma, limiting the sensitivity of mammography. FINDINGS: Typically benign vascular calcifications are again seen. There are no suspicious masses, calcifications, or areas of distortion. IMPRESSION: Benign findings. BI-RADS category 2. RECOMMENDATION: (ANNUAL) - Recommend routine annual screening mammography. BI-RADS CATEGORY: (2) - Benign Findings. STANDARD QUALIFYING STATEMENTS: 1. This examination was not reviewed with the aid of Computer-Aided Detection (CAD). 2. A negative or benign imaging report should not preclude biopsy if clinically suspicious findings are present. 3. Dense breasts may obscure an underlying neoplasm. 4. This examination was reviewed with the aid of 3D breast imaging (tomosynthesis).
== END 2019-05-12 08:10 | disposition home or self-care (01) ==
LOC: DI 08:09
PROVIDERS: ATTEND Internal Medicine
DX: N64.4 Mastodynia (principal); Z80.9 Family history of malignant neoplasm, unspecified
CPT/HCPCS: 77066

== ENCOUNTER 2019-06-30 12:10 | Outpatient (CLI) | payer MEDICARE ==
--- NOTE | 2019-07-01 08:16 | XRAY Report ---
Reason: PERSONAL HISTORY OF (HEALED) TRAUMATIC FRACTURE Procedure Date: 06/30/2019 Accession Number: [id number] / [id number] Procedure: XR - Hip w/Pelvis 2-3V RT CPT Code: Final Report FULL RESULT: EXAM: RIGHT HIP RADIOGRAPHY EXAM DATE: 06/30/2019 12:29 PM. CLINICAL HISTORY: Hip fracture COMPARISON: PELVIS 1 VIEW 05/30/2018 10:58 AM. TECHNIQUE: 3 views. FINDINGS: Bones: Patient has undergone internal fixation of right femoral neck fracture. [address] Hardware is well-positioned. There is remote right lateral compression injury. No acute bony abnormalities. Joints: No evidence of dislocation. Soft Tissues: No unexpected soft tissue findings. IMPRESSION: No unexpected findings status post internal fixation right femur fracture. RADIA
== END 2019-06-30 12:11 | disposition home or self-care (01) ==
LOC: DI 12:10
PROVIDERS: ATTEND Internal Medicine
DX: Z87.81 Personal history of (healed) traumatic fracture (principal)

== ENCOUNTER 2019-11-14 15:18 | Outpatient (CLI) | payer MEDICARE ==
--- NOTE | 2019-11-14 17:10 | DEXA Report ---
Reason: OSTEOPOROSIS Procedure Date: 11/14/2019 Accession Number: [id number] / [id number] Procedure: DEX - Dexa Spine and/or Hip CPT Code: Final Report FULL RESULT: PROCEDURE: Dexa Spine and/or Hip INDICATIONS: OSTEOPOROSIS TECHNIQUE: Dual energy x-ray absorptiometry (DXA) was performed on a [employer] System. Regions measured are the AP Spine, femoral neck, and if needed forearm. COMPARISON: 05/21/2016. FINDINGS: Lumbar Spine: Bone Mineral Density 1.013 g/cm/cm,T score -1.4, Left Hip: Bone Mineral Density 0.628 g/cm/cm,T score -3.0, Left Femoral Neck: Bone Mineral Density 0.646 g/cm/cm, T score -2.8, (T score greater or equal to -1.0: NORMAL) (T score from -1.1 to -2.4: OSTEOPENIA) (T score less than or equal to -2.5 to: OSTEOPOROSIS) Impression: Osteoporosis with statistically significant decrease in bone mineral density when compared with 05/21/2016 examination. Patients with diagnosis of osteoporosis or osteopenia should have regular bone mineral density assessment. For those eligible for Medicare, routine testing is allowed once every 2 years. Testing frequency can be increased for patients who have rapidly progressing disease or for those who are receiving medical therapy to restore bone mass. Reviewed by: Greg Balderrama MD on 11/14/2019 5:09 PM PDT Approved by: Greg Balderrama MD on 11/14/2019 5:09 PM PDT Station ID: [id number]
== END 2019-11-14 15:19 | disposition home or self-care (01) ==
LOC: DI 15:18
PROVIDERS: ATTEND Internal Medicine
DX: M81.0 Age-related osteoporosis without current pathological fracture (principal)
CPT/HCPCS: 77080

== ENCOUNTER 2021-10-23 08:00 | Outpatient (CLI) | payer MEDICARE | END 2021-10-23 23:59 | disposition home or self-care (01) | LOC: LAB.R 08:00 | PROVIDERS: ATTEND Internal Medicine | DX: M25.50 Pain in unspecified joint (principal) | CPT/HCPCS: 84550 ==

== ENCOUNTER 2023-04-20 13:06 | Outpatient (CLI) | payer MEDICARE ==
--- NOTE | 2023-04-21 09:38 | Mammography Report ---
BILATERAL DIGITAL DIAGNOSTIC MAMMOGRAM 3D/2D WITH AXILLARY TAIL: 04/20/2023 CLINICAL: Diffuse intermittent right breast and axilla pain. Due for bilateral exam. Comparison is made to exams dated: 05/12/2019 mammogram, 05/26/2018 mammogram, and 05/24/2017 mammogram - [facility]. Both breasts are heterogeneously dense, which may obscure small masses (category c / 51-75% glandular tissue). No significant masses, calcifications, or other findings are seen in either breast. Benign vascular c alcifications in both breasts. IMPRESSION: BENIGN There is no mammographic evidence of malignancy. Stable mammogram. Diffuse right breast pain. Exam findings were conveyed to the patient. Patient is advised to monitor for significant change. Cli nical follow-up as needed. A 1 year screening mammogram is recommended. Based on the Tyrer Cuzick model (a risk assessment model) the patients lifetime risk is 1.3% and her 10 year risk is 0.0%. According to the ACR, ACS, and NCCN guidelines, an annual breast MRI exam jenae g with mammogram is recommended if the patients lifetime risk is 20% or greater. This exam was interpreted at Station ID: [id number]. NOTE: For mammograms, a report in lay terms will be sent to the patient. Approximately 15% of breast malignancies will not be visualized mammographically. In the management of a palpable breast mass, a negative mammogram must not discourage biopsy of a clinically suspicious lesion. Electronically Signed By: Inocencio Hirsch M.D. slc/:04/20/2023 14:05:17 ACR BI-RADS Category 2: Benign Finding(s) 3342F PARENCHYMAL PATTERN: (D) - The breast(s) demonstrate(s) heterogeneously dense fibroglandular pardionney ma. BI-RADS CATEGORY: (2) - 2 Mammogram [id number] 1 year screening LATERALITY: (B)
== END 2023-04-20 13:07 | disposition home or self-care (01) ==
LOC: DI 13:06
PROVIDERS: ATTEND Internal Medicine
DX: N64.4 Mastodynia (principal); R92.333 Mammographic heterogeneous density, bilateral breasts